=== PATIENT | female | born 2000 | race Caucasian/White ===

== ENCOUNTER 2024-07-07 01:11 | Emergency (ER) | payer BC, SELFPAY ==
[2024-07-07] VITALS (7 sets, daily range): BP systolic 90–128; BP diastolic 53–75; BMI 33.1
[2024-07-07] MEDS: ATIVAN 1 MG IV (01:28)
[2024-07-07 01:36] LABS: % Basophils 0.9 % (0-2); % Eosinophils 1.5 % (0-6); % Immature Granulocytes 0.3 % (0-0.5); % Lymphocytes 39.4 % (20.5-51.1); % Monocytes 5.9 % (1.7-9.3); Absolute Basophils 0.1 10^3/uL (0-0.2); Absolute Eosinophils 0.1 10^3/uL (0-0.7); Absolute Lymphocytes 3.6 10^3/uL (1.2-3.4); Absolute Monocytes 0.5 10^3/uL (0.1-0.6); Absolute Neutrophils 4.8 10^3/uL (1.4-6.5); Hematocrit 36.7 % (37.0-47.0); Hemoglobin 12.5 g/dL (12.0-16.0); Mean Corp Hgb Conc. 34.1 g/dL (33.0-37.0); Mean Corpuscular Hgb 30.3 pg (27.0-31.0); Mean Corpuscular Volume 88.9 fL (81.0-99.0); Mean Platelet Volume 9.1 fL (7.4-10.4); Nucleated Red Blood Cells % 0 %; Platelet Count 331 10^3/uL (130-400); Red Blood Cell Count 4.13 10^6/uL (4.20-5.40); Red Cell Dist. Width 12.7 % (11.5-14.5); White Blood Cell Count 9.2 10^3/uL (4.8-10.8)
--- NOTE | 2024-07-07 01:37 | ED.GENMED ---
History of Present Illness
General
Chief Complaint: Alcohol Problem
Source: patient, family and ambulance crew
Exam Limitations: altered mental status
Time Seen by Provider: 07/07/24 01:29
Nursing documentation reviewed up to this point in time: agreed with
History of Present Illness
History of Present Illness:
23-year-old female presents to the emergency department with altered mental status. She was with her ras, a local bar. She states that she had several vodka cranberries and several vodka red bulls. Patient got home with her and
she took her psychiatric medications. stated that she started to get agitated shortly thereafter. He states that he was with her the entire night. He denies witnessing any trauma. They did made some new friends at the bar but he does not
suspect any foul play.
Past History
Past History
ED Past Medical History: Psychiatric (Depression)
ED Past Surgical History: None
Social History
Tobacco: Former smoker
Alcohol: Occasional
Personal: Single
Living: with family
Review of Systems
Review of Systems
Allergies reviewed?: Yes
All Other Systems: ROS reviewed and negative except as documented in HPI and ROS
Constitutional: Reports sleep disturbance
EENT: Reports no symptoms
Respiratory: Reports no symptoms
Cardiac: Reports no symptoms
ABD/GI: Reports no symptoms
: Reports no symptoms
Musculoskeletal: Reports no symptoms
Skin: Reports no symptoms
Neurological: Reports no symptoms
Endocrine: Reports no symptoms
Hematologic/Lymphatic: Reports no symptoms
Psychiatric: Reports anxiety
Phy Exam
General Physical Exam
General Presentation: well appearing and no apparent distress
General Skin: warm and dry
General Habitus: normal
General Mental: alert
General Hydration: appears well hydrated
ENT Exam
ENT Exam: EOMI, pharynx normal, neck supple and normocephalic
Eye Exam
Eye Exam: PERRL, cornea clear and conjunctiva normal
Cardiovascular Exam
Cardiovascular Exam: regular rate/rhythm, no edema, no murmur and normal peripheral pulses
Pulmonary Exam
Pulmonary Exam: lungs clear, no respiratory distress, no rales, no crackles, no rhonchi, no stridor, no wheezing and no cough
Gastrointestinal Exam
Gastrointestinal Exam: normal bowel sounds, non tender, soft, no organomegaly, no pulsatile mass and non distended
Neurological Exam
Neurological Exam: alert, oriented x3, appears intoxicated, slurred speech and other (Seemingly involuntary twitching which is intermittent in nature)
Musculoskeletal Exam
Musculoskeletal Exam: full ROM and no edema
Skin Exam
Skin Exam: normal color, warm/dry and other (Scars to the left forearm that are well-healed and nonacute)
Psychiatric Exam
Psychiatric Exam: normal mood/affect
Scores
Withdrawal Assessment of Alcohol
Withdrawal Assessment Completed?: No
Course
Orders/Labs/Results
Orders:
Orders
07/07/24 01:19
Lorazepam [Ativan] 2 mg .ROUTE .STK-MED ONE
07/07/24 01:26
Alcohol Urgent
Complete Blood Count/With Diff Urgent
Comprehensive Metabolic Panel Urgent
07/07/24 01:28
Lorazepam [Ativan] 1 mg IV NOW STA
07/07/24 01:37
Diphenhydramine [Benadryl] 25 mg IV NOW STA
07/07/24 04:37
Urinalysis Reflex To Culture Urgent
Date Specimen was Collected: 07/07/24
Time Specimen was Collected: 04:35
Urine Drug Abuse Screen Urgent
Date Specimen was Collected: 07/07/24
Time Specimen was Collected: 04:35
Abnormal Lab Results
07/07/24
01:26
RBC 4.13 L 10^6/uL
(4.20-5.40)
Hct 36.7 L %
(37.0-47.0)
Absolute Lymphs (auto) 3.6 H 10^3/uL
(1.2-3.4)
Sodium 146 H mmol/L
(135-145)
Potassium 3.4 L mmol/L
(3.5-5.1)
Glucose 163 H mg/dl
(70-99)
Albumin 5.1 H g/dl
(3.5-5.0)
07/07/24 01:26
07/07/24 01:26
Vital Signs
Initial and Last Documented VS:
Initial Vital Signs
Temp
97.9 F
07/07/24 01:15
Last Documented Vital Signs
Temp Pulse Resp BP Pulse Ox
97.9 F 108 20 128/75 98
07/07/24 01:15 07/07/24 05:30 07/07/24 05:30 07/07/24 05:00 07/07/24 05:30
*Critical Care Note
Total Time (30-74mins, 75-104mins- exclusive of procedures): Not Applicable
Update Note
Update Note:
07/07/2024 0524 AM: Patient resting comfortably, in no acute distress. She does still feel anxious but wishes to be discharged. She is awake alert and oriented x 3 with no other complaints. Patient discharged in improved condition.
ED Attending Note
-
Portions of this chart may have been created with voice recognition software.� Occasional wrong word or��sound alike� substitutions may have occurred due to the inherent limitations of voice recognition software.
Discharge Plan
Departure
Patient Disposition: Home (Routine Discharge)
Date of Disposition: 07/07/24
Time of Disposition: 05:24
Patient with high blood pressure during this ER visit?: No
Condition: Good
Discharge Problem:
Nausea & vomiting, Alcohol intoxication
Instructions: Alcohol Intoxication ED, Nausea and vomiting in adults
Prescriptions:
No Action
pantoprazole [Protonix] 40 mg tablet,delayed release (DR/EC)
40 mg PO DAILY Qty: 10 0RF
Referrals:
Dillan Merrill MD [Family Provider] -
Activity Restrictions/Additional Instructions:
It was a pleasure meeting you and taking part in your care. We hope for your continued healing and wellness.
Please read discharge instructions in their entirety. However, they are for general education and may not describe your exact diagnosis at discharge. Information on your ER visit and medical conditions were discussed with you along with appropriate
follow up information...
If indicated, please take your medications as instructed and indicated on discharge paperwork.
Please schedule a follow up appointment as directed. Call to schedule an appointment
Please return to the emergency department with ANY change in, persisting, or worsening of symptoms. If any of your symptoms do not improve, or persist, or become more severe within 6-12 hours, please return to the emergency department for further
care.
Please return to the emergency department if you develop a headache, neck pain/stiffness, fever greater than 100.4F, chest pain, shortness of breath, persistent nausea, vomiting, slurred speech, difficulty walking, numbness/tingling, weakness, signs
of infection or any other symptoms that are worrisome to you.
If you have any questions or concerns please do not hesitate to call the Hospital at or E-mail me directly at [email or web address]
Interventions
Interventions:
*Risk Screen - Suicide Last Done: 07/07/24 01:15
*General Assessment Last Done: 07/07/24 01:15
*Neglect/Abuse Screening Last Done: 07/07/24 01:15
ED- Fall Risk Assessment Last Done: 07/07/24 02:31
*ED COVID-19 Vaccine History Last Done: 07/07/24 01:15
*Nursing Disposition Last Done: 07/07/24 06:20
ED- Neurological Assessment Last Done: 07/07/24 02:31
ED-Psychological Assessment Last Done: 07/07/24 02:31
Discharge Date and Time
Discharge Date/Time: 07/07/24 06:21
Print Language: NAURUAN
[2024-07-07 01:49] LABS: ALT (SGPT) 15 U/L (0-35); AST (SGOT) 28 U/L (14-36); Albumin 5.1 g/dl (3.5-5.0); Alcohol 176 mg/dl; Alkaline Phosphatase 72 U/L (38-126); Blood Urea Nitrogen 8 mg/dl (7-17); Calcium 9.7 mg/dl (8.4-10.2); Carbon Dioxide 23 mmol/L (22-30); Chloride 105 mmol/L (98-107); Estimated Creatinine Clearance > 125 ml/min; Glucose 163 mg/dl (70-99); Potassium 3.4 mmol/L (3.5-5.1); Sodium 146 mmol/L (135-145); Total Bilirubin 0.3 mg/dl (0.2-1.3); Total Protein 8.2 g/dl (6.3-8.2); eGFR > 60.00
--- NOTE | 2024-07-07 03:59 | EDRN ---
Patient resting with at bedside
[2024-07-07 04:48] LABS: Urine Albumin Negative (Neg - Trace); Urine Bilirubin Negative (Negative); Urine Character Clear (Clear); Urine Color Yellow; Urine Glucose Negative (Negative); Urine Ketone Negative (Negative); Urine Leukocyte Negative (Negative); Urine Nitrite Negative (Negative); Urine Occult Blood Negative (Negative); Urine Urobilinogen Negative (Neg - 1+)
[2024-07-07 04:56] LABS: Amphetamines Negative (Negative); Barbiturates Negative (Negative); Benzodiazepines Negative (Negative); Buprenorphine Negative (Negative); Cocaine Negative (Negative); Marijuana Negative (Negative); Methadone Negative (Negative); Methamphetamines Negative (Negative); Opiates Negative (Negative); Phencyclidine Negative (Negative); Tricyclic Antidepressants Negative (Negative)
== END 2024-07-07 06:21 | disposition home or self-care (01) ==
LOC: EMR 01:11
PROVIDERS: EMERGENCY PHYSICIAN Student in an Organized Health Care Education/Training Program; FAMILY PHYSICIAN Family Medicine
DX: F10.129 Alcohol abuse with intoxication, unspecified (principal); R11.2 Nausea with vomiting, unspecified; F41.9 Anxiety disorder, unspecified; F32.A Depression, unspecified; Z87.891 Personal history of nicotine dependence; Z88.2 Allergy status to sulfonamides; Z91.018 Allergy to other foods
CPT/HCPCS: 99284; 96374; 80053; 80306; 81003; 82077; 85025